=== PATIENT | male | born 1990 | race Two or more races ===

== ENCOUNTER 2016-11-22 11:47 | Emergency (ER) | payer SELFPAY ==
[~2016-11-22] VITALS: Ht 170.2 cm; Wt 99.3 kg
[2016-11-22 12:10] VITALS: BP 146/76
== END 2016-11-22 13:18 | disposition home or self-care (01) ==
LOC: ED 11:47
DX: B35.3 Tinea pedis (principal); R03.0 Elevated blood-pressure reading, without diagnosis of hypertension